=== PATIENT | female | born 1940 | race Caucasian/White ===

== ENCOUNTER → 2020-05-27 | Outpatient (CLI) | payer MEDICARE | END | disposition home or self-care (01) | LOC: RAD 08:34 | PROVIDERS: ATTEND Family Medicine | DX: M19.071 Primary osteoarthritis, right ankle and foot (principal); M79.89 Other specified soft tissue disorders ==

== ENCOUNTER 2020-09-25 13:49 | Outpatient (CLI) | payer MEDICARE | END 2020-09-25 23:59 | disposition home or self-care (01) | LOC: CFH 13:49 | PROVIDERS: ATTEND Family Medicine | DX: N60.01 Solitary cyst of right breast (principal) | CPT/HCPCS: 76642; 77061; 77065; G0279 ==